=== PATIENT | female | born 1950 | race Caucasian/White ===

== ENCOUNTER 2018-07-31 01:33 | Emergency (ER) | payer MEDICARE, OTHER ==
[2018-07-31 03:50] LABS: #Basophils 0.1 thou/uL (0.0-0.2); #Eosinphils 0.1 thou/uL (0.0-0.7); #Neutrophils 7.6 thou/uL (1.40-6.50); %Basophils 0.9 % (0.0-1.0); %Lymphocytes 18.7 % (21.0-51.0); %Monocytes 9.1 % (0.0-10.0); %Neutrophils 70.3 % (42.0-75.0); Hemoglobin 13.3 g/dL (12.0-16.0); Mean Corpuscular HGB CONC 33.4 g/dL (32.0-36.0); Mean Corpuscular Hemoglobin 30.3 pg (27.0-31.0); Mean Corpuscular Volume 90.8 fL (78.0-98.0); Mean Platelet Volume 7.7 fL (7.4-10.4); Platelet Count 279 thou/uL (130-400); Red Blood Cell (RBC) Count 4.39 mill/uL (4.20-5.40); White Blood Cell (WBC) Count 10.7 thou/uL (4.8-10.8)
[2018-07-31 04:00] LABS: Bilirubin Negative (Negative); Blood, Urine Negative (Negative); Clarity CLEAR (Clear); Glucose, Urine (Dipstick) Negative (Negative); Leukocyte Trace (Negative); Nitrite Negative (Negative); Protein, Urine (Dipstick) Negative (Neg-Trace); Specific Gravity, Urine 1.016 (1.002-1.036); Urobilinogen 0.2 mg/dL (0.2-1.0)
[2018-07-31 04:01] LABS: Bacteria/HPF None Seen HPF (None Seen); Hyaline Casts/LPF 0-3 HYALINE CAST LPF (0-3 Hyaline); Pathc Cast-AUWi Flag 0.54 (0-2.49); RBC/HPF 0-3 HPF (0-3); WBC/HPF 0-3 HPF (0-3)
[2018-07-31 04:12] LABS: ALT (SGPT) 18 U/L (8-55); AST (SGOT) 25 U/L (5-34); Albumin 4.3 g/dL (3.4-4.8); Alkaline Phosphatase 69 U/L (40-150); Anion Gap 16 mmol/L (10-20); BUN (Urea Nitrogen) 21 mg/dL (9.8-20.1); Bilirubin, Total 0.3 mg/dL (0.2-1.2); Calc. Creatinine Clearance 0 mL/min (70-130); Calcium 9.4 mg/dL (7.8-10.44); Carbon Dioxide 18 mmol/L (23-31); Chloride 109 mmol/L (98-107); Estimated GFR-MDRD 74; Globulin 2.6 g/dL (2.4-3.5); Glucose 107 mg/dL (80-115); Lipase 31 U/L (8-78); Potassium 4.3 mmol/L (3.5-5.1); Protein, Total 6.9 g/dL (6.0-8.3); Sodium 139 mmol/L (136-145)
--- NOTE | 2018-07-31 07:49 | RAD ---
EXAM: Chest 2 views: HISTORY: Mid upper back pain COMPARISON: None. FINDINGS: There is a normal-sized cardiomediastinal silhouette. There is no evidence of consolidation, mass, or pleural effusion. The bones are unremarkable. Surgical clips are seen in the right axilla. IMPRESSION: No evidence of acute cardiopulmonary disease
--- NOTE | 2018-07-31 11:03 | ULT ---
PRELIMINARY REPORT/[facility]/EMERGENCY AFTER HOURS PROCEDURE: EXAM: US Abdomen Limited, Right Upper Quadrant EXAM DATE/TIME: 07/31/2018 4:05 AM CLINICAL HISTORY: 67 years old, female; Other: Upper abd pain, n/v TECHNIQUE: Imaging protocol: Real-time ultrasound of the abdomen with image documentation. Examination was focus ed on the right upper quadrant. COMPARISON: No relevant prior studies available. FINDINGS: Liver: Normal. No masses. Gallbladder: Cholelithiasis. Gallbladder wall is at the upper limits of normal in thickness. Sonographic Teague's sign negative. No pericholecystic fluid. Common bile duct: Normal. No stones. No dilation. Pancreas: Visualized pancreas is unremarkable. Right kidney: Normal. No mass. No hydronephrosis. IMPRESSION: Cholelithiasis. No definitive findings of cholecystitis. Thank you for allowing us to participate in the care of your patient. Dictated and Authenticated by: Rashaun Han MD 07/31/2018 4:45 AM Central Time ([place] & [place]) FINAL REPORT EMERGENCY AFTER HOURS RIGHT UPPER QUADRANT ABDOMINAL ULTRASOUND: FINDINGS/IMPRESSION: I agree with the findings and impression given in the preliminary report per ad physician. Cholelit hiasis.
--- NOTE | 2018-07-31 11:11 | HP ---
SUBJECTIVE: Holley Pérez is a 67-year-old female, who presents to our emergency room with severe pain in her interscapular area, flank right, and to a lesser degree epigastric. She has never had such pain before. She has been diagnosed with IBS, treated with PPI, seen by Dr. Mejia. She is up to date on colonoscopies. She presented to the emergency room, evaluated by Dr. Funes. Abdominal ultrasound revealed gallstones, 4 mm common bile duct. Liver function tests and lipase were normal. Troponin is normal. EKG normal. ALLERGIES: NONE. SOCIAL HISTORY: Tobacco, none. Alcohol, occasionally wine. MEDICATIONS: PPI, otherwise none. PAST SURGICAL HISTORY: C-sections, colonoscopy, and right breast partial mastectomy with postoperative radiation for breast cancer. PAST MEDICAL HISTORY: IBS and history of right breast cancer, treated at [facility]. REVIEW OF SYSTEMS: Ten-point, noncontributory. PHYSICAL EXAMINATION: VITAL SIGNS: Blood pressure 120/74, respiratory rate 18, and heart rate 74. HEAD, EARS, EYES, NOSE, AND THROAT: Unremarkable. Sclerae nonicteric. SKIN: Nonjaundiced. LYMPH: No lymphadenopathy in neck, axilla, or groins. LUNGS: Clear to auscultation. CARDIAC: Regular rate and rhythm without murmur or gallop. ABDOMEN: Soft and nontender. No masses. EXTREMITIES: Unremarkable. LABORATORY DATA: White count 10.7 and hemoglobin 13. Comprehensive metabolic profile normal. ASSESSMENT AND PLAN: Cholecystitis and cholelithiasis. She had biliary colic. Her pain is resolved. She has been advised that to take a low-fat diet and she desires laparoscopic cholecystectomy as an outpatient later this week. We will schedule that as an outpatient. She understands risks of infection, bleeding, visceral and biliary injury, and consents. Job ID: [id number]
== END 2018-07-31 07:15 | disposition home or self-care (01) ==
LOC: ERS 01:33
DX: K80.20 Calculus of gallbladder without cholecystitis without obstruction (principal)
CPT/HCPCS: 36415; 71046; 76705; 80053; 81003; 81015; 83690; 84484; 85025; 93005

== ENCOUNTER 2018-08-02 11:21 | Day surgery (SDC) | payer MEDICARE, OTHER ==
[2018-08-02] MEDS ORDERED: Levofloxacin 500 mg/D5W 100 ml Premix Bag ONE (12:04)
[2018-08-02] MEDS ORDERED: Ketorolac Tromethamine 30 MG/ML VIAL ONE (12:04)
[2018-08-02] MEDS ORDERED: Rocuronium Bromide 10 MG/ML (10ML VIAL) ONE (12:48)
[2018-08-02] MEDS ORDERED: PROPOFOL 200 MG/20 ML VIAL ONE (12:48)
[2018-08-02] MEDS ORDERED: Dexamethasone 20 MG/5 ML VIAL ONE (12:48)
[2018-08-02] MEDS ORDERED: Lidocaine 1% PF 5 ML VIAL ONE (12:48)
[2018-08-02] MEDS ORDERED: Succinylcholine Chloride 20 MG/ML 10 ml SYRINGE FS ONE (12:48)
[2018-08-02] MEDS ORDERED: Ondansetron PF 4 MG/2 ML Vial ONE (12:48)
[2018-08-02] MEDS ORDERED: Iothalamate Meglumine 60% 50 ML VIAL FS ONE (13:22)
[2018-08-02] MEDS ORDERED: Bupivacaine HCl 0.5%/Epinephrine 1:200,000/PF 30 ml Vial ONE (13:22)
[2018-08-02] MEDS ORDERED: Midazolam HCl 2 mg/2 ml Vial ONE (13:30)
[2018-08-02] MEDS ORDERED: Fentanyl 100 MCG/2 ML VIAL ONE ×2 (13:33→14:48)
[2018-08-02] MEDS ORDERED: SUGAMMADEX SODIUM 200 MG/2 ML VIAL ONE (14:24)
[2018-08-02] MEDS ORDERED: Promethazine HCl 25 MG/ML VIAL ONE (14:50)
--- NOTE | 2018-08-02 20:42 | OP ---
DATE OF PROCEDURE: 08/02/2018 PREOPERATIVE DIAGNOSES: Cholecystitis and cholelithiasis. POSTOPERATIVE DIAGNOSES: Cholecystitis and cholelithiasis. PROCEDURE PERFORMED: Laparoscopic video cholecystectomy. ANESTHESIA: General and local 0.5% Marcaine with epinephrine, 30 mL. DESCRIPTION OF PROCEDURE: The patient was taken to the operating room. Under general anesthesia, abdomen was prepared with ChloraPrep and draped in routine fashion. Local anesthetic was infiltrated in the skin and subcutaneous tissue about each port site. 0.5% Marcaine with epinephrine was used, total volume 30 mL used. Infraumbilical incision made, pneumoperitoneum to 15 mmHg obtained. A Veress needle placed and with a 5 port, laparoscope inserted. Right subxiphoid incision was made and 11 port placed, right subcostal incision was made, midclavicular entrance line, the 5 port was placed. Liver appeared to be normal. Fundus of the gallbladder was grasped at cephalad and the infundibulum grasped at the lateral. Cystic artery and duct dissected free. Critical view obtained. Cystic artery and duct double clipped proximally and divided. Gallbladder dissected free from liver bed obtaining good hemostasis prior to division of the final peritoneal attachments and gallbladder and multiple small stone contents removed, submitted to Pathology. Good hemostasis ensured with cautery. Irrigant and pneumoperitoneum evacuated. All instruments removed. All skin incisions were approximated with interrupted subdermal 4-0 Monocryl and Dermaglue applied. Job ID: [id number]
== END 2018-08-02 16:25 | disposition home or self-care (01) ==
LOC: SDC 11:21
PROVIDERS: ATTEND Specialist
PROC: 0FT44ZZ Resection of Gallbladder, Percutaneous Endoscopic Approach (ICD-10-PCS; principal; 2018-08-02)
DX: K80.10 Calculus of gallbladder with chronic cholecystitis without obstruction (principal); K58.9 Irritable bowel syndrome, unspecified; Z85.3 Personal history of malignant neoplasm of breast
CPT/HCPCS: 88304; J0131; J0670; J1100; J1610; J1885; J1956; J2001; J2250; J2405; J2550; J2704; J3010; Q9961